=== PATIENT | male | born 1945 | race Hispanic/Latino ===

== ENCOUNTER 2022-11-10 20:10 | Emergency (ER) | payer OTHER ==
[~2022-11-10] VITALS: Ht 182.9 cm; Wt 99.8 kg
[2022-11-10 22:35] LABS: BASOPHILS % (AUTO) 0.6 % (0.0-5.0); EOSINOPHILS % (AUTO) 2.5 % (0.0-8.0); HEMATOCRIT 32.4 % (42-54); LYMPHOCYTES % (AUTO) 10.3 % (21.0-51.0); MEAN CORPUSCULAR HEMOGLOBIN 30.1 pg (27.0-33.0); MEAN CORPUSCULAR HGB CONC 31.5 g/dL (32.0-36.0); MEAN CORPUSCULAR VOLUME 95.6 fL (79-99); MONOCYTES % (AUTO) 10.6 % (3.0-13.0); NEUTROPHILS % (AUTO) 75.6 % (40.0-77.0); PLATELET COUNT (AUTO) 131 K/uL (130-400); RED BLOOD CELL COUNT(AUTO) 3.39 MIL/uL (4.50-6.20); RED CELL DISTRIBUTION WIDTH 15.4 % (11.0-15.5); WHITE BLOOD COUNT (AUTO) 10.7 K/uL (4.8-10.8)
[2022-11-10 22:50] LABS: TOTAL PROTEIN, SERUM 7.5 g/dL (6.0-8.3)
[2022-11-11 01:07] VITALS: BP 110/53
[2022-11-11] MEDS ORDERED: NITR.4 SL (01:07)
== END 2022-11-11 01:18 | disposition home or self-care (01) ==
LOC: EDH 20:10
DX: R07.89 Other chest pain (principal); I25.10 Atherosclerotic heart disease of native coronary artery without angina pectoris; E11.22 Type 2 diabetes mellitus with diabetic chronic kidney disease; I12.0 Hypertensive chronic kidney disease with stage 5 chronic kidney disease or end stage renal disease; N18.6 End stage renal disease; Z95.1 Presence of aortocoronary bypass graft; Z95.810 Presence of automatic (implantable) cardiac defibrillator; Z99.2 Dependence on renal dialysis
CPT/HCPCS: 36415; 71045; 80053; 84484; 85025; 93005

== ENCOUNTER 2024-05-10 08:16 | Emergency (ER) | payer OTHER ==
[~2024-05-10] VITALS: Ht 182.9 cm; Wt 104.8 kg
[~2024-05-10 08:16] MED LIST: NITR.4 SL
[2024-05-10 08:52] LABS: HEMATOCRIT 27.6 % (42-54); MEAN CORPUSCULAR HEMOGLOBIN 30.7 pg (27.0-33.0); MEAN CORPUSCULAR HGB CONC 31.5 g/dL (32.0-36.0); MEAN CORPUSCULAR VOLUME 97.5 fL (79-99); PLATELET COUNT (AUTO) 225 K/uL (130-400); RED BLOOD CELL COUNT(AUTO) 2.83 MIL/uL (4.50-6.20); RED CELL DISTRIBUTION WIDTH 15.5 % (11.0-15.5); WHITE BLOOD COUNT (AUTO) 10.8 K/uL (4.8-10.8)
[2024-05-10 08:57] LABS: BASOPHILS # (AUTO) 0.08 K/uL (0.00-0.20); BASOPHILS % (AUTO) 0.7 % (0.0-5.0); EOSINOPHILS # (AUTO) 0.39 K/uL (0.00-0.70); EOSINOPHILS % (AUTO) 3.6 % (0.0-8.0); IMMATURE GRANULOCYTE ABSOLUTE 0.06 K/uL (0-1); LYMPHOCYTES # (AUTO) 1.1 K/uL (1.0-4.8); LYMPHOCYTES % (AUTO) 10.5 % (21.0-51.0); MONOCYTES # (AUTO) 1.1 K/uL (0.1-1.0); MONOCYTES % (AUTO) 9.8 % (3.0-13.0); NEUTROPHILS # (AUTO) 8.1 K/uL (1.8-7.7); NEUTROPHILS % (AUTO) 74.8 % (40.0-77.0)
[2024-05-10 09:02] LABS: CREATININE 7.6 mg/dL (0.5-1.3)
[2024-05-10 09:09] LABS: POTASSIUM 6.3 mmol/L (3.5-5.1)
[2024-05-10] MEDS: FAMOTIDINE 20MG VIAL IV ONE (09:54)
[2024-05-10] MEDS: ONDANSETRON 4MG INJ IVP ONE (09:54)
[2024-05-10] MEDS: MORPHINE 2 MG SYG IVP ONE (09:54)
[2024-05-10] MEDS: CALCIUM GLUC 1GM 1 GM in 0.9%NACL 100ML 100 ML IV ONE (10:10)
[2024-05-10] MEDS: INSULIN HUMULIN R 100 UNIT/ML 3ML IV ONE (10:12)
[2024-05-10] MEDS: KAYEXALATE 15GM/60ML PO NR (10:14)
[2024-05-10] MEDS: CALCIUM GLUC 1GM/10ML VIAL ONE (10:15)
[2024-05-10] MEDS: DEXTROSE 50%-WATER 25 GM/50 ML VIAL IV ONE (10:16)
[2024-05-10] MEDS: DEXTROSE 50%-WATER 50 ML DISP.SYRIN IV ONE (10:23)
[2024-05-10 11:47] VITALS: BP 151/92; PULSE 80; RESP 16; O2SAT 100
== END 2024-05-10 12:59 | disposition home or self-care (01) ==
LOC: EDH 08:16
DX: I12.0 Hypertensive chronic kidney disease with stage 5 chronic kidney disease or end stage renal disease (principal); E11.22 Type 2 diabetes mellitus with diabetic chronic kidney disease; N18.6 End stage renal disease; R10.9 Unspecified abdominal pain; R11.2 Nausea with vomiting, unspecified; Z99.2 Dependence on renal dialysis; I25.10 Atherosclerotic heart disease of native coronary artery without angina pectoris; D64.9 Anemia, unspecified; K80.20 Calculus of gallbladder without cholecystitis without obstruction; Z95.1 Presence of aortocoronary bypass graft; Z95.810 Presence of automatic (implantable) cardiac defibrillator
CPT/HCPCS: 99285; 74176; 96365; 96375 ×2; 84132; 80048; 83690; 85025; 36415; 93005; J1815; J0612 ×2; J3490; J2270; J7070 ×2; J2405; 96374